=== PATIENT | female | born 1985 | race Caucasian/White ===

== ENCOUNTER → 2020-08-25 | Outpatient (CLI) | payer OTHER ==
[2020-08-25 17:27] LABS: HEMATOCRIT 31.7 % (36.0-47.0); HEMOGLOBIN 10.4 g/dl (12.0-15.5); MEAN CORPUSCULAR HEMOGLOBIN 27.4 pg (27.0-33.0); MEAN CORPUSCULAR HGB CONC 32.8 g/dl (32.0-36.5); MEAN CORPUSCULAR VOLUME 83.4 fl (80.0-96.0); PLATELET COUNT, AUTOMATED 306 10^3/uL (150-450); WHITE BLOOD COUNT 8.9 10^3/uL (4.0-10.0)
[2020-08-25 17:49] LABS: TOTAL PROTEIN,RANDOM URINE 22.6 MG/DL (0.0-12.0)
[2020-08-25 17:50] LABS: ALT/SGPT 27 U/L (12-78); BILIRUBIN,TOTAL 0.2 MG/DL (0.2-1.0); GLOMERULAR FILTRATION RATE > 60.0 (>60); GLUCOSE CHALLENGE TEST 1 HOUR 195 MG/DL (LESS THAN 140); LDH LACTATE DEHYDROGENASE 100 U/L (84-246); URIC ACID 3.6 MG/DL (2.6-6.0)
[2020-08-25 18:21] LABS: HEMOGLOBIN A1c 6.7 %
[2020-08-25 18:39] LABS: HIV 1&2 SCREEN CENTAUR NEGATIVE (NEGATIVE)
[2020-08-26 11:35] LABS: GC DNA AMPLIFICATION NEGATIVE (NEGATIVE)
== END ==
LOC: M PLALAB 13:03
PROVIDERS: ATTEND Advanced Practice Midwife
DX: Z34.91 Encounter for supervision of normal pregnancy, unspecified, first trimester (principal); Z3A.01 Less than 8 weeks gestation of pregnancy

== ENCOUNTER 2020-10-28 16:37 | Emergency (ER) | payer OTHER ==
[~2020-10-28] VITALS: Ht 162.6 cm; Wt 115.6 kg
[2020-10-28] MEDS ORDERED: LABE300T2 (17:12)
[2020-10-28] MEDS ORDERED: METF-838 (17:12)
[2020-10-28] MEDS ORDERED: PREN200C PO (17:12)
[2020-10-28] MEDS ORDERED: ECOT81TA5 PO (17:12)
[2020-10-28] MEDS ORDERED: SERT50TA29 (17:12)
--- NOTE | 2020-10-28 19:11 | REP ---
INDICATION: Pre-eclampsia/eclampsia. COMPARISON: None. TECHNIQUE: Real-time sonographic evaluation of gravid uterus performed. FINDINGS: There is a single intrauterine gestation. Reportedly the estimated gestational age is 18 weeks 1 day, EDC 03/30/2021. position cephalic. Placenta posterior and grade 0 with no previa or abruption. Posterior uterine contraction is noted. heart rate is 146 beats per minute. Cervix is closed and measures 5.2 cm in length. Subjectively the amniotic fluid is within normal limits. The ovaries could not be visualized. IMPRESSION: Viable intrauterine gestation with no previa or abruption. heart rate 146 beats per minute. Cervix is closed and measures 5.2 cm in length. <Electronically signed by Sandro Pereira > 10/28/20 [id number]
[2020-10-28 19:35] LABS: BILIRUBIN,DIRECT 0.1 MG/DL (0.0-0.2); BILIRUBIN,TOTAL 0.4 MG/DL (0.2-1.0); TOTAL PROTEIN 6.6 GM/DL (6.4-8.2)
[2020-10-28 19:38] LABS: HEMOGLOBIN 9.6 g/dl (12.0-15.5); LYMPH % 22.1 % (24.0-44.0); MEAN CORPUSCULAR HEMOGLOBIN 30.1 pg (27.0-33.0); MEAN CORPUSCULAR HGB CONC 34.3 g/dl (32.0-36.5); MEAN CORPUSCULAR VOLUME 87.8 fl (80.0-96.0); NEUTROPHILS % 73.3 % (36.0-66.0); PLATELET COUNT, AUTOMATED 308 10^3/uL (150-450); RED BLOOD COUNT 3.19 10^6/uL (4.00-5.40); WHITE BLOOD COUNT 8.1 10^3/uL (4.0-10.0)
[2020-10-28 19:39] LABS: BASO % 0.1 % (0.0-1.0); LYMPH # 1.8 10^3/uL (1.5-5.0); MONO # 0.3 10^3/uL (0.0-0.8); MONO % 3.9 % (2.0-8.0); NEUTROPHILS # 5.9 10^3/uL (1.5-8.5)
[2020-10-28 20:05] LABS: MAGNESIUM LEVEL 1.7 MG/DL (1.8-2.4); URIC ACID 4.4 MG/DL (2.6-6.0)
[2020-10-28 20:44] LABS: INR 0.99; PROTHROMBIN TIME 13.4 SECONDS (12.7-14.5)
[2020-10-28 20:45] LABS: PARTIAL THROMBOPLASTIN TIME 29.2 SECONDS (25.9-37.0)
[2020-10-28] MEDS ORDERED: NS 1,000 ML IV ONE (20:50)
[2020-10-28] MEDS ORDERED: METOCLOPRAMIDE INJ 10MG/2ML VIAL (J2765 PER 1) IV ONE (20:50)
[2020-10-28] MEDS ORDERED: diphenhydrAMINE 50MG/ML VIAL (J1200) IV ONE (20:50)
[2020-10-28 20:54] LABS: RSV AMPLIFICATION NEGATIVE (NEGATIVE)
[2020-10-28] MEDS ORDERED: LABETALOL 100MG TAB PO ONE (21:00)
--- NOTE | 2020-10-28 22:20 | REPVR ---
PROCEDURE INFORMATION: Exam: MRA Head Without Contrast; Venography Exam date and time: 10/28/2020 10:01 PM Age: 34 years old Clinical indication: Headache; Additional info: Mrv to rule out venous thrombus (headache) TECHNIQUE: Imaging protocol: Magnetic resonance angiography of the head without contrast. Exam focused on the veins. COMPARISON: No relevant prior studies available. FINDINGS: Superior sagittal sinus: Patent. Straight sinus: Patent. Transverse sinuses: Small caliber though patent right transverse sinus. Patent and dominant left transverse sinus. Sigmoid sinuses: Patent. Internal jugular veins: Visualized segment patent. IMPRESSION: No evidence of dural venous sinus thrombosis. Electronically signed by: Carlo Moses On 10/28/2020 22:20:15 PM
[2020-10-28 22:44] VITALS: BP 130/85
[2020-10-28 23:44] LABS: CREATININE,RANDOM URINE 98.1 MG/DL; TOTAL PROTEIN,RANDOM URINE 11.9 MG/DL (0.0-12.0)
[2020-10-28 23:45] VITALS: BP 136/77
--- NOTE | 2020-10-30 05:09 | ECGEPIP ---
[facility] - ED Test Date: 2020-10-28 Pat Name: ANGEL SANDERS Department: Room: - [facility]: [facility]: ED : 1985 Requested By: SLOANE SANDERS PA-C Order Number: [id number] Reading MD: Addi Blackmon Measurements Intervals [place] Rate: 84 P: 11 MD: 132 QRS: 5 QRSD: 88 T: 22 QT: 402 QTc: 475 Interpretive Statements Normal sinus rhythm NO PRIORS FOR COMPARISON Electronically Signed on 10-30-2020 5:09:22 EDT by Addi Blackmon
== END 2020-10-28 23:45 | disposition home or self-care (01) ==
LOC: M ED 16:37
DX: O99.352 Diseases of the nervous system complicating pregnancy, second trimester (principal); G43.909 Migraine, unspecified, not intractable, without status migrainosus; Z87.59 Personal history of other complications of pregnancy, childbirth and the puerperium; O34.82 Maternal care for other abnormalities of pelvic organs, second trimester; Z3A.18 18 weeks gestation of pregnancy; Z88.0 Allergy status to penicillin; Z88.1 Allergy status to other antibiotic agents; Z79.899 Other long term (current) drug therapy
CPT/HCPCS: 70544; 76815; 80047; 80076; 81001; 82570; 83735; 84156; 84550; 85025; 85610; 85730; 86850; 86900; 86901; 87631; 93005; 96361; 96374; 96375; 99284; J1200; J2765

== ENCOUNTER → 2020-12-08 | Outpatient (CLI) | payer OTHER ==
[~2020-12-08] MED LIST: ECOT81TA5 PO; LABE300T2; METF-838; PREN200C PO; SERT50TA29
--- NOTE | 2020-12-08 11:16 | REP ---
INDICATION: CHRONIC HYPERTENSION. COMPARISON: 10/28/2020. TECHNIQUE: Real-time sonographic evaluation of the gravid uterus performed. FINDINGS: Estimated gestational age is24 weeks 0 days, EDC 03/30/2021. Today's measurements indicate appropriate growth. Presentation: Transverse Placenta posterior, grade 2, without evidence of placenta previa. heart rate is recorded at 143 beats per minute. Amniotic fluid is subjectively normal. Closed cervical length is measured at 4.5 cm. Biometry chart: BPD: 58 mm, 23 weeks 6 days, 48th percentile. HC: 222 mm, 24 weeks 1 days, 55th percentile AC: 192 mm, 24 weeks 0 days, 49th percentile Femur length: 44 mm, 24 weeks 4 days, 62nd percentile HC to AC ratio: 1.15, normal range 51.02-1.21. Estimated weight: 671g, 50th percentile. anatomy: Cranium: Grossly normal Lateral Ventricles/Choroid Plexus: Grossly normal Posterior Fossa/Cerebellum: Grossly normal Nose/lips/profile: Grossly normal Four chamber heart: Not well seen due to position Right ventricular outflow tract: Not well seen due to position Left ventricular outflow tract: Grossly normal Left-sided stomach: Grossly normal Kidneys: Grossly normal Bladder: Grossly normal Cord Insertion: Grossly normal 3 vessel cord: Grossly normal Spine: Grossly normal IMPRESSION: Viable single intrauterine gestation as above. <Electronically signed by Sandro Pereira > 12/08/20 [id number]
== END ==
LOC: M WHC 08:00
PROVIDERS: ATTEND Obstetrics & Gynecology
DX: O10.912 Unspecified pre-existing hypertension complicating pregnancy, second trimester (principal); Z3A.24 24 weeks gestation of pregnancy

== ENCOUNTER → 2021-01-14 | Outpatient (CLI) | payer OTHER ==
[~2021-01-14] MED LIST changes: +AMLO1TAB24 PO; +BUPR-69 PO; +BUPR150T12; +CELE10TA PO; +IBUP1TAB7 PO; +LABE20TAB PO; +NUCY50TA19 PO; +PROM12.528 PO; +ULTR50TA8 PO
--- NOTE | 2021-01-14 19:34 | REP ---
INDICATION: PRE EXIST DIABETES MELLITUS. COMPARISON: Comparison study December 08, 2020. TECHNIQUE: Transabdominal obstetric sonography. FINDINGS: Scanning through the gravid uterus demonstrates a viable single intrauterine gestation in cephalic lie. motion is observed and heart rate is recorded at 138 beats per minute. A posterior placenta is seen, grade 2, without evidence of placenta previa. Closed cervical length was not measurable due to Dipti head position.. No extrauterine abnormality is observed. Amniotic fluid is subjectively normal, CRISTOBAL 22.8 cm.. Four-chamber heart and right ventricular cardiac outflow tract views were achieved today and are felt to be normal. The Biometry chart: BPD 7.4 cm, 29 weeks 6 days Head circumference 27.0 cm, 29 weeks 3 days Abdominal circumference 25.7 cm, 29 weeks 6 days Femur length 5.2 cm, 27 weeks 5 days Humeral length 5.2 cm, 30 weeks 3 days HC AC ratio normal 1.05 Cephalic index normal 0.77 Estimated weight 1343 g, 2 lb 15 oz, 42nd percentile for 29 weeks 0 days IMPRESSION: Viable single intrauterine gestation at 29 weeks 3 days by today's composite sonographic criteria. GUSTAVO by today's sonography March 29, 2021. No complication identified. In conjunction with the prior study, anatomic survey is felt to be complete. <Electronically signed by Jagdish Mcgarry > 01/14/211930
== END ==
LOC: M WHC 08:22
PROVIDERS: ATTEND Obstetrics & Gynecology
DX: O24.312 Unspecified pre-existing diabetes mellitus in pregnancy, second trimester (principal); Z3A.29 29 weeks gestation of pregnancy

== ENCOUNTER → 2021-02-18 | Outpatient (CLI) | payer OTHER ==
[~2021-02-18] MED LIST changes: +GNP45TAB2 PO; +INSUN SC; +INSUR SC; +MULTTAB20 PO; -SERT50TA29; +SERT50TA29 PO
== END ==
LOC: MERGE 02-17 11:30 → M WHC 12:30
PROVIDERS: ATTEND Obstetrics & Gynecology
DX: O10.913 Unspecified pre-existing hypertension complicating pregnancy, third trimester (principal); Z3A.34 34 weeks gestation of pregnancy
CPT/HCPCS: 76816; 76817; 90471; 90715; G0463

== ENCOUNTER → 2021-03-02 | Outpatient (REF) | payer OTHER ==
[~2021-03-02] MED LIST changes: +COLA100C5 PO; +IBUP80TA PO; +METF500T13 PO; +PERCOCET PO
== END ==
LOC: M SFHCWAGY 16:40
PROVIDERS: ATTEND Obstetrics & Gynecology
DX: O09.293 Supervision of pregnancy with other poor reproductive or obstetric history, third trimester (principal); Z3A.00 Weeks of gestation of pregnancy not specified
CPT/HCPCS: 59025; 87081; 87186; G0463

== ENCOUNTER → 2021-03-07 | Outpatient (CLI) | payer OTHER ==
[~2021-03-07] MED LIST changes: -COLA100C5 PO; -IBUP80TA PO; -METF500T13 PO; -PERCOCET PO
== END ==
LOC: M LABSMTC 09:25
PROVIDERS: ATTEND Anesthesiology
DX: Z01.812 Encounter for preprocedural laboratory examination (principal); Z20.822 Contact with and (suspected) exposure to COVID-19

== ENCOUNTER 2021-03-11 05:41 | Inpatient (IN) | payer OTHER ==
[~2021-03-11] VITALS: Ht 162.6 cm; Wt 123.6 kg
[2021-03-14 06:00] VITALS: BP 138/76
[2021-03-14 08:06] VITALS: BP 145/72
[2021-03-14] MEDS ORDERED: IBUP80TA PO (11:15)
[2021-03-14] MEDS ORDERED: COLA100C5 PO (11:15)
[2021-03-14] MEDS ORDERED: PERCOCET PO (11:15)
[2021-03-14] MEDS ORDERED: METF500T13 PO (11:51)
== END 2021-03-14 13:00 | disposition home or self-care (01) | DRG 785 ==
LOC: M LDI 05:41 → M OBS 14:55
PROVIDERS: ADMIT Obstetrics & Gynecology; ATTEND Obstetrics & Gynecology
PROC: 10D00Z1 Extraction of Products of Conception, Low, Open Approach (ICD-10-PCS; principal; 2021-03-11)
PROC: 0UB70ZZ Excision of Bilateral Fallopian Tubes, Open Approach (ICD-10-PCS; 2021-03-11)
DX: O10.92 Unspecified pre-existing hypertension complicating childbirth (principal); Z37.0 Single live birth; Z3A.37 37 weeks gestation of pregnancy; Z30.2 Encounter for sterilization; O09.523 Supervision of elderly multigravida, third trimester; O24.425 Gestational diabetes mellitus in childbirth, controlled by oral hypoglycemic drugs; E66.9 Obesity, unspecified; O99.214 Obesity complicating childbirth

== ENCOUNTER → 2021-10-26 | Outpatient (REF) | payer OTHER ==
[~2021-10-26] MED LIST changes: +COLA100C5 PO; +IBUP80TA PO; -LABE300T2; +LABE300T55; +METF500T13 PO; +PERCOCET PO
== END ==
LOC: M SFHCWAGY 13:16
PROVIDERS: ATTEND Nurse Practitioner Family
DX: Z12.4 Encounter for screening for malignant neoplasm of cervix (principal)
CPT/HCPCS: 87624; G0123; G0463